=== PATIENT | female | born 1950 | race Caucasian/White ===

== ENCOUNTER → 2017-01-04 | Outpatient (REF) | payer MEDICARE ==
[~2017-01-04] MED LIST: ADV100INH INH; ASPI1TAB PO; ATOR40TA PO; BACL10TA2 PO; CALC600T57 PO; DRIS50002 PO; EPIP0.3I2 IM; PROA1AER INH; SPIR1CAP INH; TYLE167L PO; VITA100072 PO; VITA30004 PO
== END ==
LOC: M LAB REF 16:35
PROVIDERS: ATTEND Nurse Practitioner Adult Health
DX: R35.1 Nocturia (principal)

== ENCOUNTER → 2017-03-23 | Outpatient (CLI) | payer MEDICARE ==
[2017-03-23 14:48] LABS: CREATININE FOR GFR 1.03 MG/DL (0.55-1.02); GLOMERULAR FILTRATION RATE 56.7 (>45); POTASSIUM SERUM 4.6 MEQ/L (3.5-5.1)
[2017-03-23 22:25] LABS: MICROSCOPIC INDICATED? MAN NO (NO)
== END ==
LOC: M WUC 12:04
PROVIDERS: ATTEND Physician Assistant
DX: M54.5 Low back pain (principal); R35.0 Frequency of micturition

== ENCOUNTER → 2017-03-23 | Outpatient (CLI) | payer MEDICARE ==
--- NOTE | 2017-03-23 14:44 | REP ---
CT ABDOMEN/PELVIS WITHOUT CONTRAST: CT abdomen/pelvis performed without IV contrast, with sagittal and coronal reconstruction images performed. Comparison made with prior studies, most recent CT abdomen and pelvis, 03/27/2013. Visualized lung bases demonstrate interstitial fibrotic change. Liver demonstrates scattered small cysts similar to prior exams. Spleen, adrenals, and pancreas appear unremarkable. There are vascular calcifications in both renal marichuy. Possible 3 cm mass is seen in the mid left kidney laterally. Recommend renal ultrasound to further evaluate. There is no hydroureteronephrosis. Atherosclerotic calcifications are seen of the abdominal aorta without aneurysm. There is no adenopathy. There is no free air or free fluid. There is no bowel wall thickening. There is sigmoid diverticulosis without acute diverticulitis. No pelvic mass is seen. There are degenerative changes of the spine. IMPRESSION: No renal stones and no hydroureteronephrosis. Possible left renal mass 3 cm in diameter. Recommend renal ultrasound to further evaluate. Sigmoid diverticulosis without evidence of acute diverticulitis. No free air or free fluid. Signed by López Hunt MD 03/23/2017 04:23 P
== END ==
LOC: M RAD 12:52
PROVIDERS: ATTEND Physician Assistant
DX: M54.5 Low back pain (principal); R35.0 Frequency of micturition; K57.30 Diverticulosis of large intestine without perforation or abscess without bleeding

== ENCOUNTER → 2017-03-28 | Outpatient (CLI) | payer MEDICARE ==
--- NOTE | 2017-03-28 12:46 | REP ---
URINARY TRACT SONOGRAPHY: HISTORY: CT found 3 cm mass left kidney. Comparison CT study March 23, 2017. There is also a comparison CT study from March 27, 2013. Comparison sonography is from January 06, 2011. FINDINGS: Scanning at the level of the urinary bladder demonstrate that it is only partially distended but otherwise unremarkable. Renal cortical echogenicity pattern is normal bilaterally. No hydronephrosis is seen on either side. The right kidney measures 12.0 x 4.7 x 4.8 cm. No right renal mass or cyst is seen. Left renal dimensions are 12.4 x 4.4 x 4.4 cm. In the upper pole left kidney there is a complex predominantly cystic lesion measuring 3.5 x 2.3 x 3.2 cm. The lesion appears to be septated. There is the appearance of a solid component along one of its will. There is enhanced through transmission. No other mass lesion is seen. IMPRESSION: 3.5 cm complex lesion confirmed in the upper pole of the left kidney. Predominately cystic. Further evaluation is recommended with MRI scanning without and with IV gadolinium. Signed by Tristan Beltran MD 03/28/2017 01:11 P
== END ==
LOC: M RAD 11:35
PROVIDERS: ATTEND Physician Assistant
DX: M54.5 Low back pain (principal); R35.0 Frequency of micturition; N28.9 Disorder of kidney and ureter, unspecified

== ENCOUNTER → 2017-08-02 | Outpatient (CLI) | payer MEDICARE ==
[~2017-08-02] MED LIST changes: -ATOR40TA PO; +ATOR40TA75 PO; -PROA1AER INH; +PROAAER10 INH
--- NOTE | 2017-08-02 14:32 | REPMRS ---
Patient History The patient states she had a clinical breast exam in 07/2017. Patient is postmenopausal and had first child at age 30. Family history of colorectal cancer in paternal cousin and prostate cancer in brother. Benign FNA biopsy of the right breast, 1998. Digital Woman Screen Mammo: August 02, 2017 - Exam #: [id number] Bilateral CC and MLO view(s) were taken. Technologist: Louann Acosta, Technologist Prior study comparison: July 20, 2016, digital woman screen mammo performed at [facility]. June 26, 2015, digital woman screen mammo performed at [facility]. FINDINGS: There are scattered fibroglandular densities. There has been no change in the appearance of the mammogram from the prior studies. There is a mild amount of residual fibroglandular tissue which is fairly symmetric. There is no interval development of dominant mass, architectural distortion, or clustered microcalcification suggestive of malignancy. ASSESSMENT: BI-RADS/ACR category 1 mammogram. Negative. Recommendation Routine screening mammogram in 1 year (for women over age 40). This mammogram was interpreted with the aid of an FDA-approved computer-aided dectection system. Electronically Signed By: López Hunt MD 08/02/17 1813
--- NOTE | 2017-08-02 16:25 | REP ---
PELVIC ULTRASOUND: Real-time sonographic evaluation of the pelvis was performed utilizing transabdominal and endovaginal technique. The bladder measures 3.0 x 4.2 x 4.9 cm. The uterus measures 6.4 x 2.0 x 4.1 cm. Endometrial thickness is 3 mm. The ovaries could not be visualized. There is no definite adnexal mass or free fluid. There does appear to be a subcentimeter fibroid anteriorly. Two calcifications in the posterior myometrium probably represent small calcified fibroids. IMPRESSION: There appear to be small fibroids in the uterus. No evidence of mass or free fluid.
--- NOTE | 2017-08-11 09:20 | DEXA ---
AP SPINE L1 - L4 0.895 -2.4 -0.8 LT FEMUR TOTAL 0.828 -1.4 0.0 RT FEMUR TOTAL 0.860 -1.2 0.2 TOTAL BODY TOTAL OTHER DUAL FEMUR FRAX* ASSESSMENT Risk factors: Not performed. 10 year probability of fracture Major osteoporotic fracture % Hip fracture % COMMENTS: There is low bone density of the spine and hips. The decreased density of the spine does not represent a significant change. The decreased density of the left hip does not represent a significant change. The increased density of the right hip does represent a significant change. The density of the spine has increased 2.9% since the initial exam on 2001. The spine density has decreased 0.6% since the most recent exam on 06/26/2015. The density of the left hip has decreased 4.6% since the initial exam on 2001. The density of the left hip has decreased 0.1% since the most recent exam on . The density of the right hip has decreased 3.0% since the initial exam on 2001. The density of the right hip has increased 3.5% since the most recent exam on . FOLLOW-UP: Recommendation for the next bone density exam: 2 years. JOVAN
== END ==
LOC: M WHC 13:06
PROVIDERS: ATTEND Nurse Practitioner Women's Health
DX: Z01.419 Encounter for gynecological examination (general) (routine) without abnormal findings (principal); Z12.31 Encounter for screening mammogram for malignant neoplasm of breast; M81.0 Age-related osteoporosis without current pathological fracture; Z78.0 Asymptomatic menopausal state; D25.9 Leiomyoma of uterus, unspecified; Z12.12 Encounter for screening for malignant neoplasm of rectum; Z92.89 Personal history of other medical treatment
CPT/HCPCS: 76830; 76856; 77080; G0202

== ENCOUNTER → 2017-10-03 | Outpatient (REF) | payer MEDICARE ==
[2017-10-03 20:09] LABS: PERCENT SATURATION 21.9 % (13.2-45.0)
== END ==
LOC: M LAB REF 17:17
PROVIDERS: ATTEND Nurse Practitioner Adult Health
DX: D64.9 Anemia, unspecified (principal)

== ENCOUNTER → 2017-10-30 | Outpatient (CLI) | payer MEDICARE ==
--- NOTE | 2017-10-30 12:09 | REP ---
RIGHT LOWER LEG, TWO VIEWS: There is no evidence of an acute fracture, dislocation or intrinsic bone disease. IMPRESSION: No fracture or dislocation. Signed by López Hunt MD 10/30/2017 05:57 P
== END ==
LOC: M WUC 10:21
PROVIDERS: ATTEND Physician Assistant
DX: M79.661 Pain in right lower leg (principal)

== ENCOUNTER → 2018-03-28 | Outpatient (CLI) | payer MEDICARE ==
[2018-03-28 11:21] LABS: BASO % 0.7 % (0.0-1.0); EOS # 0.2 10^3/uL (0.0-0.50); EOS % 3.1 % (0.0-3.0); HEMATOCRIT 35.7 % (36.0-47.0); HEMOGLOBIN 11.4 g/dl (12.0-15.5); IMMATURE GRANULOCYTE % 1.1 % (0-3.0); LYMPH # 1.3 10^3/uL (1.5-4.5); LYMPH % 23.8 % (24.0-44.0); MEAN CORPUSCULAR HEMOGLOBIN 31.8 pg (27.0-33.0); MEAN CORPUSCULAR HGB CONC 31.9 g/dl (32.0-36.5); MEAN CORPUSCULAR VOLUME 99.7 fl (80.0-96.0); MONO # 0.5 10^3/uL (0.0-0.8); MONO % 9.8 % (0.0-5.0); NEUTROPHILS # 3.3 10^3/uL (1.8-7.7); NEUTROPHILS % 61.5 % (36.0-66.0); PLATELET COUNT, AUTOMATED 275 10^3/uL (150-450); RED BLOOD COUNT 3.58 10^6/uL (4.00-5.40); WHITE BLOOD COUNT 5.4 10^3/uL (4.0-10.0)
[2018-03-28 11:46] LABS: C REACTIVE PROTEIN QUANTITATIV 0.53 MG/DL (0.00-0.30)
[2018-03-28 11:54] LABS: ERYTHROCYTE SEDIMENTATION RATE 27 mm/hr (0-30)
== END ==
LOC: M LAB 10:58
DX: M77.8 Other enthesopathies, not elsewhere classified (principal); Z79.899 Other long term (current) drug therapy
CPT/HCPCS: 86140

== ENCOUNTER 2018-04-24 07:29 | Outpatient (RCR) | payer MEDICARE | END 2018-05-12 | LOC: M OT 07:29 | DX: Z51.89 Encounter for other specified aftercare (principal); M77.8 Other enthesopathies, not elsewhere classified; M79.644 Pain in right finger(s) | CPT/HCPCS: 97110 ==

== ENCOUNTER → 2018-07-06 | Outpatient (REF) | payer MEDICARE ==
[2018-07-06 18:06] LABS: APPEARANCE, URINE CLEAR (CLEAR); BACTERIA, URINE AUTO NEGATIVE (NEGATIVE); BILIRUBIN, URINE AUTO NEGATIVE (NEGATIVE); BLOOD, URINE BLOOD NEGATIVE (NEGATIVE); CALCIUM OXALATE CRYSTALS MODERATE; COLOR, URINE YELLOW (YELLOW); GLUCOSE, URINE (UA) AUTO NEGATIVE (NEGATIVE); KETONE, URINE AUTO NEGATIVE (NEGATIVE); LEUKOCYTE ESTERASE, URINE AUTO NEGATIVE (NEGATIVE); NITRITE, URINE AUTO NEGATIVE (NEGATIVE); PROTEIN, URINE AUTO NEGATIVE (NEGATIVE); RBC, URINE AUTO 1 /HPF (0-3); SPECIFIC GRAVITY URINE AUTO 1.019 (1.002-1.035); SQUAMOUS EPITHELIAL CELL UR AU 0 /HPF (0-6); UROBILINOGEN, URINE AUTO 0.2 mg/dL (0.0-2.0); WBC, URINE AUTO 1 /HPF (0-3)
== END ==
LOC: M SMT 16:40
DX: R35.0 Frequency of micturition (principal)
CPT/HCPCS: 81001

== ENCOUNTER → 2018-08-03 | Outpatient (CLI) | payer MEDICARE | LOC: M WHC 10:34 | DX: Z12.31 Encounter for screening mammogram for malignant neoplasm of breast (principal); Z78.0 Asymptomatic menopausal state; Z80.0 Family history of malignant neoplasm of digestive organs; Z98.890 Other specified postprocedural states | CPT/HCPCS: 77067 ==

== ENCOUNTER → 2018-11-29 | Outpatient (CLI) | payer MEDICARE ==
[~2018-11-29] MED LIST changes: -DRIS50002 PO; +DRIS50003 PO
--- NOTE | 2018-11-29 14:30 | REP ---
Chest two views HISTORY: Cough Comparison: 04/13/2012 Linear densities are present in the left lower lobe consistent with scar. The right lung is clear. The heart is upper limits of normal in size. The pulmonary vasculature is normal in appearance. The bony structure is intact. IMPRESSION: No acute disease. Electronically Signed by Alvaro Rangel MD 11/29/2018 02:23 P
== END ==
LOC: M WUC 14:12
PROVIDERS: ATTEND Nurse Practitioner Family
DX: R05 Cough (principal)

== ENCOUNTER → 2018-12-31 | Outpatient (CLI) | payer MEDICARE ==
--- NOTE | 2018-12-31 11:50 | REP ---
Renal ultrasound: Comparison is 03/28/2017. On the comparison study there was a complex renal cyst in the upper pole of the left kidney. Study today is for follow-up of this complex cyst. There is a complex lesion in the upper pole left kidney today measuring 1.8 x 1.5 x 1.5 cm. Previously this lesion measured 3.5 x 3.2 x 2.3 cm. This lesion today appears predominantly solid ultrasound. Previously it was combination of solid and cystic. The right kidney measures 920 x 4. By 4.7 cm. Left kidney measures 11.2 x 4.9 x 5.0 cm. Renal cortical echogenicity is normal bilaterally. There is no hydronephrosis on the right on the left. There are no renal calculi. There is no hydronephrosis. Bladder ultrasound: The with color Doppler assessment there are bilateral ureteral jets into the urinary bladder. The pre void bladder volume is 99.4 ml. The postvoid bladder volume. 0.6 ml per Impression: The patient's known left renal upper pole lesion has decreased in size but today has a predominantly solid appearance. Previously this was combination of solid and cystic. Consider follow-up MRI to compare with prior MRI studies in this lesion. Electronically Signed by López Hayes MD 12/31/2018 11:41 A
== END ==
LOC: M RAD 10:28
PROVIDERS: ATTEND Nurse Practitioner Family
DX: N28.1 Cyst of kidney, acquired (principal)

== ENCOUNTER → 2019-01-08 | Outpatient (CLI) | payer MEDICARE ==
[2019-01-08 17:14] LABS: CALCIUM LEVEL 9.4 MG/DL (8.8-10.2); CREATININE FOR GFR 1.07 MG/DL (0.55-1.30); POTASSIUM SERUM 4.7 MEQ/L (3.5-5.1)
== END ==
LOC: M WUC 12:29
PROVIDERS: ATTEND Nurse Practitioner Family
DX: N28.1 Cyst of kidney, acquired (principal)
CPT/HCPCS: 36415; 80048; G0463

== ENCOUNTER → 2019-03-27 | Outpatient (CLI) | payer MEDICARE ==
[~2019-03-27] MED LIST changes: -ASPI1TAB PO; +ASPI81TA26 PO; +VITA100018 PO; -VITA100072 PO
--- NOTE | 2019-03-27 13:21 | REP ---
Left ribs four views: Comparison is the PA and lateral chest dated 11/29/2018. There is slight deformity of the posterior arch of the left sixth rib. This could represent an age indeterminate fracture. No other left rib fractures are identified. PA chest: There is no pneumothorax, hemothorax or pulmonary contusion. Cardiac size is normal. The marichuy, mediastinum, skeletal structures are otherwise unremarkable. Electronically Signed by López Hayes MD 03/27/2019 01:13 P
== END ==
LOC: M WUC 12:07
PROVIDERS: ATTEND Physician Assistant
DX: S20.222A Contusion of left back wall of thorax, initial encounter (principal); X58.XXXA Exposure to other specified factors, initial encounter; Y92.89 Other specified places as the place of occurrence of the external cause

== ENCOUNTER → 2019-08-23 | Outpatient (CLI) | payer MEDICARE ==
--- NOTE | 2019-08-23 12:43 | REPMRS ---
Patient History The patient states she had a clinical breast exam in 08/2019. Family history of colorectal cancer in paternal cousin, prostate cancer at age 50 or over in brother, unknown cancer at age 50 or over in brother. Benign FNA biopsy of the right breast, 1998. Digital Woman Screen Mammo: August 23, 2019 - Exam #: [id number] Bilateral CC and MLO view(s) were taken. Technologist: Haley Cortés, Technologist Prior study comparison: August 03, 2018, bilateral digital woman screen mammo performed at [facility]. August 02, 2017, digital woman screen mammo performed at [facility]. July 20, 2016, digital woman screen mammo performed at [facility]. FINDINGS: There are scattered fibroglandular densities. There has been no change in the appearance of the mammogram from the prior studies. There is a mild amount of scattered fibroglandular density which is fairly symmetric. There is no interval development of dominant mass, architectural distortion, or grouped microcalcification suggestive of malignancy. 3-D tomosynthesis shows no additional findings. Assessment: BI-RADS/ACR category 1 mammogram. Negative Mammogram. Recommendation Routine screening mammogram of both breasts in 1 year (for women over age 40). This patient's Lifetime Breast Cancer Risk is estimated at 5.5 %. This mammogram was interpreted with the aid of an FDA-approved computer-aided dectection system. Electronically Signed By: Gokul Beltran MD 08/23/19 [id number]
--- NOTE | 2019-08-27 14:28 | DEXA ---
AP SPINE L1 - L4 0.927 -2.2 -0.5 LT FEMUR TOTAL 0.799 -1.7 -0.2 LT NECK 0.729 -2.2 -0.5 RT FEMUR TOTAL 0.827 -1.4 0.0 RT NECK 0.681 -2.6 -0.9 TOTAL BODY TOTAL OTHER COMMENTS: There is low bone density of the spine. There is low bone density of the left hip. There is osteoporosis of the right hip. The increased density of the spine does represent a significant change. The decreased density of the left hip does represent a significant change. The decreased density of the right hip does represent significant change. The density of the spine has increased 6.6% since the initial exam on 04/02/2002. The spine density has increased 3.6% since the most recent exam on 08/02/2017. The density of the left hip has decreased 7.9% since the initial exam on 04/02/2002. The density of the left hip has decreased 3.5% since most recent exam on 08/02/2017. The density of the right hip has decreased 7.0% since the initial exam on 04/02/2002. The density of the right hip has decreased 4.1% since the most recent exam on 08/02/2017. FOLLOW-UP: Recommendation for the next bone density exam: 2 years. JOVAN
== END ==
LOC: M WHC 10:38
PROVIDERS: ATTEND Nurse Practitioner Women's Health
DX: Z12.31 Encounter for screening mammogram for malignant neoplasm of breast (principal); M81.0 Age-related osteoporosis without current pathological fracture; Z80.42 Family history of malignant neoplasm of prostate; Z80.8 Family history of malignant neoplasm of other organs or systems; Z92.89 Personal history of other medical treatment

== ENCOUNTER → 2019-09-27 | Outpatient (REF) | payer MEDICARE ==
[2019-09-27 16:59] LABS: PTH INTACT 52.2 PG/ML (18.5-88.0)
== END ==
LOC: M LAB REF 16:28
PROVIDERS: ATTEND Nurse Practitioner Adult Health
DX: R20.3 Hyperesthesia (principal); N18.3 Chronic kidney disease, stage 3 (moderate)

== ENCOUNTER 2019-10-08 10:37 | Outpatient (RCR) | payer MEDICARE | END 2019-10-12 | LOC: M PT 10:37 | PROVIDERS: ATTEND Nurse Practitioner Adult Health | DX: M54.5 Low back pain (principal); M79.604 Pain in right leg ==

== ENCOUNTER → 2019-11-01 | Outpatient (CLI) | payer MEDICARE ==
--- NOTE | 2019-11-01 12:24 | REP ---
Four views right knee and three views right tibia / fibula: 11/01/2019. Indication: Pain following injury. Comparison: 10/30/2017. Findings: There is a minimally displaced, obliquely oriented fracture through the proximal portion of the right fibula. There is an effusion of the right knee particularly the infra and suprapatellar regions. No additional fractures are present. There is no evidence of subluxation/dislocation. Impression: Mildly displaced proximal right fibular fracture. Electronically Signed by Leif Whiteside DO 11/01/2019 12:16 P
== END ==
LOC: M WUC 10:25
PROVIDERS: ATTEND Physician Assistant
DX: S82.831A Other fracture of upper and lower end of right fibula, initial encounter for closed fracture (principal); M25.461 Effusion, right knee; X58.XXXA Exposure to other specified factors, initial encounter; Y92.9 Unspecified place or not applicable; Y93.9 Activity, unspecified; Y99.9 Unspecified external cause status; S80.01XA Contusion of right knee, initial encounter; S80.11XA Contusion of right lower leg, initial encounter

== ENCOUNTER → 2020-08-24 | Outpatient (CLI) | payer MEDICARE ==
--- NOTE | 2020-08-24 11:48 | REPMRS ---
Patient History The patient states she had a clinical breast exam in 08/2020. Family history of colorectal cancer in paternal cousin, prostate cancer at age 50 or over in brother, unknown cancer at age 50 or over in brother. Benign FNA biopsy of the right breast, 1998. Digital Woman Screen Mammo: August 24, 2020 - Exam #: [id number] Bilateral CC and MLO view(s) were taken. Technologist: Louann Acosta, Technologist Prior study comparison: August 23, 2019, bilateral digital woman screen mammo performed at [facility]. August 03, 2018, bilateral digital woman screen mammo performed at [facility]. August 02, 2017, digital woman screen mammo performed at [facility]. FINDINGS: There are scattered fibroglandular densities. The Volpara volumetric breast density category is:B. There has been no change in the appearance of the mammogram from the prior studies. There is a mild amount of scattered fibroglandular density which is fairly symmetric. There is no interval development of dominant mass, architectural distortion, or grouped microcalcification suggestive of malignancy. 3-D tomosynthesis shows no additional findings. Assessment: BI-RADS/ACR category 1 mammogram. Negative Mammogram. Recommendation Routine screening mammogram of both breasts in 1 year (for women over age 40). This patient's Lifetime Breast Cancer Risk is estimated at 5.2 %. This mammogram was interpreted with the aid of an FDA-approved computer-aided dectection system. Electronically Signed By: Gokul Beltran MD 08/24/20 0534
== END ==
LOC: M WHC 10:35
PROVIDERS: ATTEND Nurse Practitioner Women's Health
DX: Z12.31 Encounter for screening mammogram for malignant neoplasm of breast (principal); Z80.42 Family history of malignant neoplasm of prostate; Z86.018 Personal history of other benign neoplasm

== ENCOUNTER → 2021-08-09 | Outpatient (CLI) | payer MEDICARE ==
--- NOTE | 2021-08-09 13:05 | REP ---
INDICATION: COMPLEX RENAL CYST. COMPARISON: 07/22/2020 FINDINGS: Multiple ultrasonographic images of the right kidney show the right kidney to measure 9.3 x 4.3 x 4.8 cm. The renal cortical echotexture is unchanged. There are no masses. There is good corticomedullary differentiation. There is no hydronephrosis. There are no perinephric fluid collections. Multiple ultrasonographic images of the left kidney show the left kidney to measure 11.6 x 3.8 x 4.4 cm. The renal cortical echotexture is unchanged. There is a 3.1 x 2.1 x 2.2 cm sized hypoechoic nodule which has increased in size from the prior exam.. There is good corticomedullary differentiation. There is no hydronephrosis. There are no perinephric fluid collections. IMPRESSION: Hypoechoic region in the left kidney as described above possibly reflecting an enlarging hyperdense cyst, however, solid mass cannot be ruled out. Pre and postcontrast enhanced renal CT is recommended <Electronically signed by Ruy Bianchi > 08/09/21 [id number]
== END ==
LOC: M RAD 12:10
PROVIDERS: ATTEND Nurse Practitioner Family
DX: N28.1 Cyst of kidney, acquired (principal); N28.89 Other specified disorders of kidney and ureter

== ENCOUNTER → 2021-09-13 | Outpatient (CLI) | payer MEDICARE ==
--- NOTE | 2021-09-13 12:53 | REPMRS ---
Patient History The patient states she had a clinical breast exam 08/05/21. Family history of colorectal cancer in paternal cousin, prostate cancer at age 50 or over in brother, unknown cancer at age 50 or over in brother. Benign FNA biopsy of the right breast, 1998. Digital Woman Screen Mammo: September 13, 2021 - Exam #: [id number] Bilateral CC and MLO view(s) were taken. Technologist: Gisel Washington, [employer] Prior study comparison: August 24, 2020, bilateral digital woman screen mammo performed at [facility]. August 23, 2019, bilateral digital woman screen mammo performed at [facility]. FINDINGS: There are scattered fibroglandular densities. Screening. Digital screening (2D) mammography was performed bilaterally in the CC and MLO projections. Additionally, breast tomosynthesis (3D mammography) was performed bilaterally in the CC and MLO projections. Todays exam was compared to the prior exam/exams. By history, the patient has no complaints of a palpable breast abnormality or other significant breast complaints. The breasts are unchanged in size and shape. There are no zuleika-soft tissue densities or spiculated masses. There is no internal architectural distortion. Once again, stable benign appearing calcifications are seen.There are no suspicious zuleika-calcific clusters. Skin thickening or nipple retraction is not present. IMPRESSION: BI-RADS Category 2- Benign Findings. There is no evidence of malignant alteration of the breasts. Followup examination recommended in one year. The Volpara volumetric breast density category is B, there are scattered areas of fibroglandular densities. This mammogram was read with the assistance of [facility] [employer],an FDA approved computer aided detection system for mammography. The lifetime Tyrer-Cuzick score is 4.8 % Negative x-ray reports should not delay surgical consultation if a dominant or clinically suspicious mass is present. Not all breast cancers can be identified by mammography. Therefore, we recommend that you continue to perform regular breast self-examination and physical examination and then promptly contact your physician of any concerns or changes. Adenosis and dense breasts may obscure an underlying neoplasm. Assessment: BI-RADS/ACR category 2 mammogram. Benign Findings. Recommendation Routine screening mammogram of both breasts in 1 year. Electronically Signed By: Ruy Bianchi DO 09/13/21 125
== END ==
LOC: M WHC 12:09
PROVIDERS: ATTEND Nurse Practitioner Adult Health
DX: Z12.31 Encounter for screening mammogram for malignant neoplasm of breast (principal); Z80.0 Family history of malignant neoplasm of digestive organs; Z80.42 Family history of malignant neoplasm of prostate; R92.1 Mammographic calcification found on diagnostic imaging of breast

== ENCOUNTER → 2021-09-29 | Outpatient (CLI) | payer MEDICARE ==
--- NOTE | 2021-10-10 22:01 | DEXAMM ---
INDICATION: BONE DENSITY. COMPARISON: 08/23/2019, 04/02/2002 TECHNIQUE: Bone density was measured using dual-energy x-ray absorptionmetry (DEXA). FINDINGS: AP SPINE L1-L4 BMD 0.96 g/cm2 Young Adult T-Score -1 point Age Matched Z-Score -0.2. LT FEMUR, TOTAL BMD 0.76 g/cm2 Young Adult T-Score X -2.0 Age Matched Z-Score -0.3. LT NECK BMD 0.68 g/cm2 Young Adult T-Score -2.6 Age Matched Z-Score X -0.8. RT FEMUR, TOTAL BMD 0.76 g/cm2 Young Adult T-Score -2.0 Age Matched Z-Score -0.4. RT NECK BMD 0.69 g/cm2 Young Adult T-Score -2.5 Age Matched Z-Score -0.7. IMPRESSION: There is low bone density of the spine. There is low bone density of the left hip. There is low bone density of the right hip. The density of the spine has increased 10% since the initial exam on 04/02/2002. The density of the spine increased 4% since most recent exam on 08/23/2019. The density of the left hip has decreased 12% since initial exam on 04/02/2002. The density of the left hip has decreased 5% since most recent exam on 08/23/2019. The density of the right hip has decreased 14% since the initial exam on 04/02/2002. The density of the right hip has decreased 8% since the most recent exam on 08/23/2019. FOLLOW-UP: Recommendation for the next bone density exam: 1 year. <Electronically signed by Mushtaq Ann > 10/10/21 0603
== END ==
LOC: M WHC 09:38
PROVIDERS: ATTEND Nurse Practitioner Adult Health
DX: M81.0 Age-related osteoporosis without current pathological fracture (principal); M85.89 Other specified disorders of bone density and structure, multiple sites

== ENCOUNTER → 2021-10-15 | Outpatient (CLI) | payer MEDICARE ==
[~2021-10-15] MED LIST changes: +PROHANCE 279.3MG/ML 15ML VIAL ONE; +PROHANCE 279.3MG/ML 5ML VIAL ONE
--- NOTE | 2021-10-15 14:34 | REP ---
INDICATION: COMPLEX RENAL CYST. COMPARISON: Multiple the latest 01/21/2019 TECHNIQUE: Pre and post contrast 3T MRI of the kidneys was performed utilizing various sequences. Gadolinium utilized: 17 cc ProHance FINDINGS: Note is again made of a complex cystic enhancing left renal lesion which today measures 1.7 x 1.6 by 1.4 cm previously 2.3 x 1.7 x 1.9 cm. No new abnormal renal enhancing lesions have developed. There is no abnormal Natalya renal fluid. The abdominal aorta and para-aortic regions are unchanged. No adenopathy has developed. The imaged portion of the liver is unchanged. The gallbladder, pancreas, and adrenal glands are unchanged. There is no evidence of a splenic abnormality. IMPRESSION: 1. The enhancing cystic left renal mass has again gotten smaller as described above. There are no new renal lesions. 2. Otherwise no significant change. There is cholelithiasis status quo. There are multiple tiny hepatic cysts status quo. No new abnormalities are identified. <Electronically signed by Ruy Bianchi > 10/15/21 [id number]
== END ==
LOC: M PLAIMG 10:11
PROVIDERS: ATTEND Nurse Practitioner Women's Health
DX: N28.1 Cyst of kidney, acquired (principal); N28.89 Other specified disorders of kidney and ureter; K80.20 Calculus of gallbladder without cholecystitis without obstruction; K76.89 Other specified diseases of liver
CPT/HCPCS: 74183; A9576

== ENCOUNTER 2022-04-07 18:24 | Emergency (ER) | payer MEDICARE ==
[~2022-04-07] VITALS: Ht 167.6 cm; Wt 180.0 kg
[2022-04-07 18:24] VITALS: BP 126/57
[~2022-04-07 18:24] MED LIST changes: -PROHANCE 279.3MG/ML 15ML VIAL ONE; -PROHANCE 279.3MG/ML 5ML VIAL ONE
[2022-04-07] MEDS ORDERED: ONDANSETRON 4MG ORAL DISINTEGRATING TAB PO ONE (20:55)
[2022-04-07] MEDS ORDERED: ONDA4TAB6 PO (21:07)
== END 2022-04-07 21:32 | disposition home or self-care (01) ==
LOC: M ED 18:24
DX: R11.0 Nausea (principal); Z86.16 Personal history of COVID-19; I10 Essential (primary) hypertension; K21.9 Gastro-esophageal reflux disease without esophagitis; F17.200 Nicotine dependence, unspecified, uncomplicated; Z79.82 Long term (current) use of aspirin; Z79.899 Other long term (current) drug therapy; Z91.030 Bee allergy status; Z91.89 Other specified personal risk factors, not elsewhere classified

== ENCOUNTER → 2022-06-08 | Outpatient (REF) | payer MEDICARE ==
[~2022-06-08] MED LIST changes: +ONDA4TAB6 PO
== END ==
LOC: M LAB REF 16:16
PROVIDERS: ATTEND Nurse Practitioner Adult Health
DX: Z51.81 Encounter for therapeutic drug level monitoring (principal); Z79.899 Other long term (current) drug therapy

== ENCOUNTER → 2022-09-16 | Outpatient (CLI) | payer MEDICARE | LOC: M WHC 13:38 | PROVIDERS: ATTEND Nurse Practitioner Adult Health | DX: Z12.31 Encounter for screening mammogram for malignant neoplasm of breast (principal) ==

== ENCOUNTER → 2023-01-20 | Outpatient (REF) | payer MEDICARE | LOC: M LAB REF 16:24 | PROVIDERS: ATTEND Nurse Practitioner Adult Health | DX: Z51.81 Encounter for therapeutic drug level monitoring (principal) ==

== ENCOUNTER 2024-10-18 11:44 | Emergency (ER) | payer MEDICARE ==
[~2024-10-18] VITALS: Ht 167.6 cm; Wt 66.4 kg
[~2024-10-18 11:44] MED LIST changes: -ADV100INH INH; +ADVA1AER8 INH; +ONDA-282 PO; -ONDA4TAB6 PO
[2024-10-18 11:55] VITALS: TEMP 96.8
[2024-10-18] MEDS: ACETAMINOPHEN 325 MG TAB PO ONE (13:15)
[2024-10-18] MEDS ORDERED: ROLLMIS8 XX (14:06)
[2024-10-18 15:03] VITALS: BP 120/58; O2SAT 98
== END 2024-10-18 15:06 | disposition home or self-care (01) ==
LOC: M ED 11:44
DX: S40.022A Contusion of left upper arm, initial encounter (principal); R26.9 Unspecified abnormalities of gait and mobility; W19.XXXA Unspecified fall, initial encounter; Y92.9 Unspecified place or not applicable; Y93.9 Activity, unspecified; Y99.9 Unspecified external cause status; M54.50 Low back pain, unspecified; K21.9 Gastro-esophageal reflux disease without esophagitis; F03.90 Unspecified dementia, unspecified severity, without behavioral disturbance, psychotic disturbance, mood disturbance, and anxiety; Z79.82 Long term (current) use of aspirin; Z79.899 Other long term (current) drug therapy; Z88.3 Allergy status to other anti-infective agents; Z91.030 Bee allergy status

== ENCOUNTER 2024-10-23 10:32 | Observation (INO) | payer MEDICARE ==
[~2024-10-23] VITALS: Ht 165.1 cm; Wt 68.8 kg
[~2024-10-23 10:32] MED LIST changes: +ROLLMIS8 XX
[2024-10-23 13:42] LABS: KETONE, URINE AUTO RFX NEGATIVE (NEGATIVE); NITRITE, URINE AUTO RFX NEGATIVE (NEGATIVE); RBC, URINE AUTO RFX 1 /HPF (0-3); SQUAM EPITHELIAL CELL UR AURFX 1 /HPF (0-6); TRANSITIONAL EPITHELIAL AU RFX 2 /HPF
[2024-10-23 13:43] LABS: LEUKOCYTE ESTERASE UR AUTO RFX 3+ (NEGATIVE); WBC, URINE AUTO RFX 24 /HPF (0-3)
[2024-10-23 14:10] LABS: BASO % 0.4 % (0.0-1.0); EOS # 0.2 10^3/uL (0.0-0.5); EOS % 2.1 % (0.0-3.0); HEMATOCRIT 31.1 % (36.0-47.0); HEMOGLOBIN 10.6 g/dl (12.0-15.5); LYMPH # 1.1 10^3/uL (1.5-5.0); LYMPH % 14.7 % (24.0-44.0); MEAN CORPUSCULAR HEMOGLOBIN 33.5 pg (27.0-33.0); MEAN CORPUSCULAR HGB CONC 34.1 g/dl (32.0-36.5); MEAN CORPUSCULAR VOLUME 98.4 fl (80.0-96.0); MONO # 0.7 10^3/uL (0.0-0.8); MONO % 9.1 % (2.0-8.0); NEUTROPHILS # 5.7 10^3/uL (1.5-8.5); NEUTROPHILS % 73.4 % (36.0-66.0); PLATELET COUNT, AUTOMATED 278 10^3/uL (150-450); RED BLOOD COUNT 3.16 10^6/uL (4.00-5.40); WHITE BLOOD COUNT 7.7 10^3/uL (4.0-10.0)
[2024-10-23] MEDS: cefTRIAXone SOD 1 GM in DEXTROSE 5% (D5W) ADV/MINI-BAG 50 ML IV ONE (14:15)
[2024-10-23 14:30] LABS: ALBUMIN 3.3 G/DL (3.2-5.2); BILIRUBIN,DIRECT 0.2 MG/DL (<0.4); BILIRUBIN,TOTAL 0.7 MG/DL (0.3-1.2); TOTAL PROTEIN 6.4 G/DL (5.7-8.2)
[2024-10-23 14:32] LABS: BLOOD UREA NITROGEN 35 MG/DL (9-23); CALCIUM LEVEL 10.9 MG/DL (8.3-10.6); CARBON DIOXIDE LEVEL 27 MMOL/L (20-31); CHLORIDE LEVEL 105 MMOL/L (98-107); CREATININE FOR GFR 0.83 MG/DL (0.55-1.30); GLOMERULAR FILTRATION RATE > 60.0 (>39); GLUCOSE, FASTING 93 MG/DL (74-106); POTASSIUM SERUM 4.3 MMOL/L (3.5-5.1); SODIUM LEVEL 141 MMOL/L (136-145)
[2024-10-23] MEDS ORDERED: LISI5TAB11 PO (16:37)
[2024-10-23] MEDS ORDERED: CHOL25TA9 PO (16:37)
[2024-10-23] MEDS ORDERED: OMEGCAP4 PO (16:37)
[2024-10-23] MEDS ORDERED: VITA500C3 PO (16:37)
[2024-10-23] MEDS ORDERED: OXYB5TAB14 PO (16:37)
[2024-10-23] MEDS ORDERED: HOME MED LIST COMPLETE! XX SCH (16:40)
[2024-10-23] MEDS: NS (Normal Saline) 0.9% 1,000 ML IV ONE ×2 (16:46→18:11)
[2024-10-23 20:41] LABS: MAGNESIUM LEVEL 1.9 MG/DL (1.8-2.4)
[2024-10-23] MEDS: OMEGA-3 1000MG CAPSULE PO SCH (21:00)
[2024-10-23] MEDS: oxyBUTYnin 5 MG TAB PO SCH (21:09)
[2024-10-23] MEDS: ATORVASTATIN 20 MG TAB PO SCH (21:11)
[2024-10-23] MEDS: CYANOCOBALAMIN 500 MCG TAB PO SCH (21:13)
[2024-10-24 06:42] LABS: BASO % 0.4 % (0.0-1.0); EOS # 0.1 10^3/uL (0.0-0.5); EOS % 1.6 % (0.0-3.0); HEMATOCRIT 31.5 % (36.0-47.0); HEMOGLOBIN 10.5 g/dl (12.0-15.5); LYMPH # 0.8 10^3/uL (1.5-5.0); LYMPH % 11.9 % (24.0-44.0); MEAN CORPUSCULAR HEMOGLOBIN 32.9 pg (27.0-33.0); MEAN CORPUSCULAR HGB CONC 33.3 g/dl (32.0-36.5); MEAN CORPUSCULAR VOLUME 98.7 fl (80.0-96.0); MONO # 0.6 10^3/uL (0.0-0.8); MONO % 8.4 % (2.0-8.0); NEUTROPHILS # 5.3 10^3/uL (1.5-8.5); NEUTROPHILS % 77.1 % (36.0-66.0); PLATELET COUNT, AUTOMATED 276 10^3/uL (150-450); RED BLOOD COUNT 3.19 10^6/uL (4.00-5.40); WHITE BLOOD COUNT 6.9 10^3/uL (4.0-10.0)
[2024-10-24 07:15] LABS: ALKALINE PHOSPHATASE 60 U/L (35-104); ALT/SGPT 25 U/L (7.0-40); AST/SGOT 22 U/L (<34); BILIRUBIN,TOTAL 0.7 MG/DL (0.3-1.2); BLOOD UREA NITROGEN 23 MG/DL (9-23); CALCIUM LEVEL 10.1 MG/DL (8.3-10.6); CARBON DIOXIDE LEVEL 24 MMOL/L (20-31); CHLORIDE LEVEL 111 MMOL/L (98-107); CREATININE FOR GFR 0.82 MG/DL (0.55-1.30); FOLATE 7.12 NG/ML (>5.4); FREE THYROXINE INDEX 4.3 % (1.3-4.8); GLOMERULAR FILTRATION RATE > 60.0 (>39); GLUCOSE, FASTING 108 MG/DL (74-106); MAGNESIUM LEVEL 1.8 MG/DL (1.8-2.4); PHOSPHORUS LEVEL 3.8 MG/DL (2.4-5.1); POTASSIUM SERUM 4.3 MMOL/L (3.5-5.1); SODIUM LEVEL 143 MMOL/L (136-145); T UPTAKE 47.5 % (22.5-37.0); THYROID STIMULATING HORMONE 0.872 uIU/ML (0.55-4.78); THYROXINE (T4) 9.1 UG/DL (4.5-10.9); TOTAL 25(OH) VITAMIN D 40.4 NG/ML (20.0-100.0); TOTAL PROTEIN 5.8 G/DL (5.7-8.2); VITAMIN B12 LEVEL 493 PG/ML (211-911)
[2024-10-24] MEDS: CALCIUM/VITAMIN D 500 MG TAB PO SCH (10:05)
[2024-10-24] MEDS ORDERED: OXYB5TAB14 PO (11:40)
[2024-10-24] MEDS: FOSFOMYCIN TROMETHAMINE 3 GM POWDER PACKET (MONUROL) PO ONE (16:08)
[2024-10-24 21:23] VITALS: BP 138/64; TEMP 97.3; O2SAT 98
[2024-10-24] MEDS: ACETAMINOPHEN 325 MG TAB PO PRN (21:53)
[2024-10-25 04:00] VITALS: BP 127/52; TEMP 97.5; O2SAT 98
[2024-10-25 04:56] LABS: BASO % 0.5 % (0.0-1.0); EOS # 0.2 10^3/uL (0.0-0.5); EOS % 2.9 % (0.0-3.0); HEMATOCRIT 30.3 % (36.0-47.0); HEMOGLOBIN 9.7 g/dl (12.0-15.5); LYMPH # 1.2 10^3/uL (1.5-5.0); MEAN CORPUSCULAR HEMOGLOBIN 32.4 pg (27.0-33.0); MEAN CORPUSCULAR VOLUME 101.3 fl (80.0-96.0); MONO # 0.6 10^3/uL (0.0-0.8); MONO % 9.7 % (2.0-8.0); NEUTROPHILS # 4.5 10^3/uL (1.5-8.5); NEUTROPHILS % 68.3 % (36.0-66.0); PLATELET COUNT, AUTOMATED 240 10^3/uL (150-450); RED BLOOD COUNT 2.99 10^6/uL (4.00-5.40); WHITE BLOOD COUNT 6.6 10^3/uL (4.0-10.0)
[2024-10-26 04:00] VITALS: BP 124/52; TEMP 97.5; O2SAT 97
[2024-10-26 06:21] LABS: BASO # 0.1 10^3/uL (0.0-0.2); BASO % 0.6 % (0.0-1.0); EOS # 0.2 10^3/uL (0.0-0.5); EOS % 2.5 % (0.0-3.0); HEMATOCRIT 29.3 % (36.0-47.0); HEMOGLOBIN 9.7 g/dl (12.0-15.5); LYMPH # 1.5 10^3/uL (1.5-5.0); LYMPH % 18.4 % (24.0-44.0); MEAN CORPUSCULAR HEMOGLOBIN 33.7 pg (27.0-33.0); MEAN CORPUSCULAR HGB CONC 33.1 g/dl (32.0-36.5); MEAN CORPUSCULAR VOLUME 101.7 fl (80.0-96.0); MONO # 0.6 10^3/uL (0.0-0.8); MONO % 7.6 % (2.0-8.0); NEUTROPHILS # 5.6 10^3/uL (1.5-8.5); NEUTROPHILS % 70.3 % (36.0-66.0); PLATELET COUNT, AUTOMATED 245 10^3/uL (150-450); RED BLOOD COUNT 2.88 10^6/uL (4.00-5.40); WHITE BLOOD COUNT 7.9 10^3/uL (4.0-10.0)
[2024-10-27 03:54] VITALS: BP 116/49; TEMP 97.3; O2SAT 98
[2024-10-27 06:49] LABS: BASO % 0.5 % (0.0-1.0); EOS # 0.2 10^3/uL (0.0-0.5); EOS % 2.7 % (0.0-3.0); HEMATOCRIT 31.9 % (36.0-47.0); HEMOGLOBIN 10.2 g/dl (12.0-15.5); LYMPH # 1.3 10^3/uL (1.5-5.0); LYMPH % 17.4 % (24.0-44.0); MEAN CORPUSCULAR HEMOGLOBIN 32.8 pg (27.0-33.0); MEAN CORPUSCULAR VOLUME 102.6 fl (80.0-96.0); MONO # 0.5 10^3/uL (0.0-0.8); MONO % 6.8 % (2.0-8.0); NEUTROPHILS # 5.3 10^3/uL (1.5-8.5); NEUTROPHILS % 71.9 % (36.0-66.0); PLATELET COUNT, AUTOMATED 266 10^3/uL (150-450); RED BLOOD COUNT 3.11 10^6/uL (4.00-5.40); WHITE BLOOD COUNT 7.4 10^3/uL (4.0-10.0)
[2024-10-28 05:13] LABS: BASO % 0.5 % (0.0-1.0); EOS # 0.2 10^3/uL (0.0-0.5); EOS % 2.3 % (0.0-3.0); HEMOGLOBIN 9.9 g/dl (12.0-15.5); LYMPH # 1.5 10^3/uL (1.5-5.0); LYMPH % 16.5 % (24.0-44.0); MEAN CORPUSCULAR HEMOGLOBIN 32.7 pg (27.0-33.0); MEAN CORPUSCULAR HGB CONC 31.9 g/dl (32.0-36.5); MEAN CORPUSCULAR VOLUME 102.3 fl (80.0-96.0); MONO # 0.5 10^3/uL (0.0-0.8); MONO % 6.1 % (2.0-8.0); NEUTROPHILS # 6.5 10^3/uL (1.5-8.5); NEUTROPHILS % 74.1 % (36.0-66.0); PLATELET COUNT, AUTOMATED 271 10^3/uL (150-450); RED BLOOD COUNT 3.03 10^6/uL (4.00-5.40); WHITE BLOOD COUNT 8.8 10^3/uL (4.0-10.0)
[2024-10-28 05:26] VITALS: BP 136/54; TEMP 97.3; O2SAT 96
[2024-10-29 02:41] VITALS: BP 105/55; TEMP 97.9; O2SAT 97
[2024-10-29 04:02] VITALS: BP 117/60; TEMP 97.7; O2SAT 98
[2024-10-29 05:14] LABS: BASO # 0.1 10^3/uL (0.0-0.2); BASO % 0.6 % (0.0-1.0); EOS # 0.2 10^3/uL (0.0-0.5); EOS % 2.7 % (0.0-3.0); HEMATOCRIT 29.3 % (36.0-47.0); HEMOGLOBIN 9.7 g/dl (12.0-15.5); LYMPH # 1.4 10^3/uL (1.5-5.0); LYMPH % 17.7 % (24.0-44.0); MEAN CORPUSCULAR HEMOGLOBIN 33.1 pg (27.0-33.0); MEAN CORPUSCULAR HGB CONC 33.1 g/dl (32.0-36.5); MONO # 0.6 10^3/uL (0.0-0.8); MONO % 7.9 % (2.0-8.0); NEUTROPHILS # 5.4 10^3/uL (1.5-8.5); NEUTROPHILS % 70.2 % (36.0-66.0); PLATELET COUNT, AUTOMATED 274 10^3/uL (150-450); RED BLOOD COUNT 2.93 10^6/uL (4.00-5.40); WHITE BLOOD COUNT 7.7 10^3/uL (4.0-10.0)
[2024-10-30 04:00] VITALS: BP 121/61; TEMP 97.5; O2SAT 95
[2024-10-30 07:55] LABS: BASO % 0.6 % (0.0-1.0); EOS # 0.2 10^3/uL (0.0-0.5); EOS % 2.8 % (0.0-3.0); HEMATOCRIT 30.6 % (36.0-47.0); LYMPH # 1.2 10^3/uL (1.5-5.0); MEAN CORPUSCULAR HEMOGLOBIN 33.2 pg (27.0-33.0); MEAN CORPUSCULAR HGB CONC 32.7 g/dl (32.0-36.5); MEAN CORPUSCULAR VOLUME 101.7 fl (80.0-96.0); MONO # 0.6 10^3/uL (0.0-0.8); MONO % 8.4 % (2.0-8.0); NEUTROPHILS # 4.5 10^3/uL (1.5-8.5); NEUTROPHILS % 68.7 % (36.0-66.0); PLATELET COUNT, AUTOMATED 303 10^3/uL (150-450); RED BLOOD COUNT 3.01 10^6/uL (4.00-5.40); WHITE BLOOD COUNT 6.5 10^3/uL (4.0-10.0)
[2024-10-31 03:30] VITALS: BP 103/50; TEMP 97.5; O2SAT 98
[2024-10-31] MEDS: RAMELTEON 8 MG TAB (ROZEREM) PO PRN (20:59)
[2024-11-01 04:20] VITALS: BP 130/48; TEMP 97.5; O2SAT 97
[2024-11-01] MEDS: traMADol 50 MG TAB PO PRN (11:57)
[2024-11-01] MEDS: ACETAMINOPHEN 500 MG TAB PO SCH (16:06)
[2024-11-02 04:00] VITALS: BP 132/52; TEMP 97.2; O2SAT 95
[2024-11-02] MEDS: ENOXAPARIN 40MG/0.4ML SYRINGE (J1650 PER 10MG) SC SCH (09:46)
[2024-11-03 04:02] VITALS: BP 132/52; TEMP 97; O2SAT 96
[2024-11-03 12:55] LABS: KETONE, URINE AUTO RFX NEGATIVE (NEGATIVE); MUCUS, URINE RFX SMALL (NEGATIVE); NITRITE, URINE AUTO RFX NEGATIVE (NEGATIVE); RBC, URINE AUTO RFX 20 /HPF (0-3); SQUAM EPITHELIAL CELL UR AURFX 0 /HPF (0-6)
[2024-11-03 13:09] LABS: LEUKOCYTE ESTERASE UR AUTO RFX 3+ (NEGATIVE); WBC, URINE AUTO RFX 126 /HPF (0-3)
[2024-11-03] MEDS: CEFDINIR 300 MG CAP (OMNICEF) PO SCH (14:51)
[2024-11-04 04:19] VITALS: BP 114/51; TEMP 97.3; O2SAT 97
[2024-11-05 04:00] VITALS: BP 141/62; TEMP 97.5; O2SAT 95
[2024-11-06 03:40] VITALS: BP 122/49; TEMP 97.7; O2SAT 96
[2024-11-06 05:34] VITALS: O2SAT 96
[2024-11-07 04:20] VITALS: BP 131/47; TEMP 97.3; O2SAT 97
[2024-11-07] MEDS: ALPRAZolam 0.5 MG TAB PO ONE (18:27)
[2024-11-08 03:32] VITALS: BP 127/47; TEMP 97.2; O2SAT 96
[2024-11-08 20:48] VITALS: O2SAT 97
[2024-11-09 04:00] VITALS: BP 121/71; TEMP 97.5; O2SAT 96
[2024-11-09] MEDS: OLANZapine 5 MG TAB PO ONE (18:29)
[2024-11-09] MEDS: ACETAMINOPHEN 325 MG TAB PO PRN (20:48)
[2024-11-09] MEDS: OLANZapine 2.5MG TABLET PO PRN (20:48)
[2024-11-10 04:00] VITALS: BP 102/52; TEMP 96.8; O2SAT 96
[2024-11-11 04:03] VITALS: BP 137/49; TEMP 97.2; O2SAT 97
[2024-11-11] MEDS: SENOKOT S TAB PO PRN (08:08)
[2024-11-12 03:32] VITALS: BP 130/51; TEMP 97.2; O2SAT 96
[2024-11-13 03:50] VITALS: BP 105/41; TEMP 97.2; O2SAT 96
[2024-11-13 04:55] VITALS: BP 115/55
[2024-11-14 06:00] VITALS: BP 131/59; TEMP 97.7; O2SAT 96
[2024-11-15 04:03] VITALS: BP 122/44; TEMP 97.5; O2SAT 96
[2024-11-16 03:35] VITALS: BP 111/44; TEMP 97.7; O2SAT 98
[2024-11-17 04:00] VITALS: BP 105/55; TEMP 97.9; O2SAT 96
[2024-11-18 04:00] VITALS: BP 108/43; TEMP 97.3; O2SAT 97
[2024-11-19 04:00] VITALS: BP 102/37; TEMP 97.9; O2SAT 96
[2024-11-20 04:06] VITALS: BP 102/43; TEMP 97.9; O2SAT 96
[2024-11-20 08:45] VITALS: BP 100/40
[2024-11-21 04:06] VITALS: BP 98/40; TEMP 97.9; O2SAT 97
[2024-11-21 05:00] VITALS: BP 105/54
[2024-11-22 04:35] VITALS: BP 90/28; TEMP 97.9; O2SAT 96
[2024-11-22 04:49] VITALS: BP 92/38
[2024-11-22 05:19] VITALS: O2SAT 98
[2024-11-22 06:07] LABS: HEMATOCRIT 28.5 % (36.0-47.0); HEMOGLOBIN 9.1 g/dl (12.0-15.5); MEAN CORPUSCULAR HGB CONC 31.9 g/dl (32.0-36.5); MEAN CORPUSCULAR VOLUME 103.3 fl (80.0-96.0); PLATELET COUNT, AUTOMATED 213 10^3/uL (150-450); RED BLOOD COUNT 2.76 10^6/uL (4.00-5.40); WHITE BLOOD COUNT 5.4 10^3/uL (4.0-10.0)
[2024-11-22 06:22] LABS: BLOOD UREA NITROGEN 37 MG/DL (9-23); CALCIUM LEVEL 9.5 MG/DL (8.3-10.6); CARBON DIOXIDE LEVEL 27 MMOL/L (20-31); CHLORIDE LEVEL 105 MMOL/L (98-107); CREATININE FOR GFR 0.88 MG/DL (0.55-1.30); GLOMERULAR FILTRATION RATE > 60.0 (>39); GLUCOSE, FASTING 88 MG/DL (74-106); POTASSIUM SERUM 4.4 MMOL/L (3.5-5.1); SODIUM LEVEL 141 MMOL/L (136-145)
[2024-11-22 09:25] VITALS: BP 120/58
[2024-11-22 13:59] LABS: KETONE, URINE AUTO RFX NEGATIVE (NEGATIVE); LEUKOCYTE ESTERASE UR AUTO RFX 3+ (NEGATIVE); NITRITE, URINE AUTO RFX NEGATIVE (NEGATIVE); RBC, URINE AUTO RFX 3 /HPF (0-3); SQUAM EPITHELIAL CELL UR AURFX 0 /HPF (0-6); TRANSITIONAL EPITHELIAL AU RFX 2 /HPF; WBC, URINE AUTO RFX 36 /HPF (0-3)
[2024-11-22 20:30] VITALS: BP 112/42; TEMP 97.9; O2SAT 96
[2024-11-22] MEDS: CEFDINIR 300 MG CAP (OMNICEF) PO SCH (20:32)
[2024-11-23 04:27] VITALS: BP_SYST 100; BP_SYST 101; BP_DIAS 30; BP_DIAS 36; TEMP 97.2; O2SAT 96
[2024-11-23 04:42] VITALS: BP 100/42
[2024-11-23 06:25] LABS: HEMOGLOBIN 9.2 g/dl (12.0-15.5); MEAN CORPUSCULAR HEMOGLOBIN 33.7 pg (27.0-33.0); MEAN CORPUSCULAR HGB CONC 32.9 g/dl (32.0-36.5); MEAN CORPUSCULAR VOLUME 102.6 fl (80.0-96.0); PLATELET COUNT, AUTOMATED 216 10^3/uL (150-450); RED BLOOD COUNT 2.73 10^6/uL (4.00-5.40); WHITE BLOOD COUNT 4.7 10^3/uL (4.0-10.0)
[2024-11-23 06:55] LABS: BLOOD UREA NITROGEN 29 MG/DL (9-23); CALCIUM LEVEL 9.1 MG/DL (8.3-10.6); CARBON DIOXIDE LEVEL 29 MMOL/L (20-31); CHLORIDE LEVEL 108 MMOL/L (98-107); CREATININE FOR GFR 0.88 MG/DL (0.55-1.30); GLOMERULAR FILTRATION RATE > 60.0 (>39); GLUCOSE, FASTING 91 MG/DL (74-106); POTASSIUM SERUM 4.3 MMOL/L (3.5-5.1); SODIUM LEVEL 144 MMOL/L (136-145)
[2024-11-23] MEDS: PHENAZOPYRIDINE 100 MG TAB PO SCH (16:21)
[2024-11-23 21:10] VITALS: BP 91/38; TEMP 97.9; O2SAT 96
[2024-11-23 21:11] VITALS: BP 108/46
[2024-11-24 05:30] VITALS: BP 110/45; TEMP 97.9; O2SAT 95
[2024-11-25 03:58] VITALS: BP 111/44; TEMP 97.7; O2SAT 95
[2024-11-26 03:36] VITALS: BP 128/43; TEMP 97.7; O2SAT 96
[2024-11-26] MEDS: MOM 30ML SUSPENSION UDC PO PRN (10:51)
[2024-11-26] MEDS: SENOKOT S TAB PO SCH (20:10)
[2024-11-27 05:18] VITALS: BP 100/42; TEMP 97.7; O2SAT 95
[2024-11-28 04:30] VITALS: BP_SYST 100; BP_SYST 102; BP_DIAS 36; TEMP 97.7; O2SAT 96
[2024-11-29 04:51] VITALS: BP 109/60; TEMP 97.9; O2SAT 97
[2024-11-30 03:59] VITALS: BP 109/48; TEMP 97.9; O2SAT 95
[2024-12-01 04:43] VITALS: BP 104/48; TEMP 97.9; O2SAT 96
[2024-12-02 04:30] VITALS: BP 110/58; TEMP 97.5; O2SAT 95
[2024-12-03 04:30] VITALS: BP 110/46; TEMP 97.7; O2SAT 96
[2024-12-04 04:30] VITALS: BP 102/42; TEMP 97.9; O2SAT 93
[2024-12-04] MEDS ORDERED: ACET32TAB PO (11:03)
[2024-12-04] MEDS ORDERED: OLAN2.5T53 PO (11:03)
[2024-12-04] MEDS ORDERED: RAME8TAB2 PO (11:03)
[2024-12-04] MEDS ORDERED: SENN-52 PO (11:03)
== END 2024-12-04 11:45 ==
LOC: M ED 10:32 → M ED INP 10:33 → M MSPAV 10-24 21:20
PROVIDERS: ADMIT General Practice; ATTEND Internal Medicine
DX: G93.41 Metabolic encephalopathy (principal); F03.90 Unspecified dementia, unspecified severity, without behavioral disturbance, psychotic disturbance, mood disturbance, and anxiety; N39.0 Urinary tract infection, site not specified; B96.20 Unspecified Escherichia coli [E. coli] as the cause of diseases classified elsewhere; M81.0 Age-related osteoporosis without current pathological fracture; G25.1 Drug-induced tremor; E78.5 Hyperlipidemia, unspecified; I10 Essential (primary) hypertension; J44.9 Chronic obstructive pulmonary disease, unspecified; K58.8 Other irritable bowel syndrome; K21.9 Gastro-esophageal reflux disease without esophagitis; N28.1 Cyst of kidney, acquired; M40.00 Postural kyphosis, site unspecified; Z79.899 Other long term (current) drug therapy
CPT/HCPCS: 36415; 51701; 73564; 80048; 80053; 80076; 81001; 82140; 82306; 82607; 82746; 83605; 83690; 83735; 84100; 84436; 84443; 84479; 85025; 85027; 87086; 87088; 87186; 87426; 96365; 96372; 96375; 97116; 97161; 97165; 97530; 97535; 99285; G0378; J0696; J1650

== ENCOUNTER → 2024-12-06 | Outpatient (REF) ==
[~2024-12-06] MED LIST changes: +ACET32TAB PO; +CHOL25TA9 PO; +LISI5TAB11 PO; +OLAN2.5T53 PO; +OMEGCAP4 PO; +OXYB5TAB14 PO; +RAME8TAB2 PO; +SENN-52 PO; +VITA500C3 PO
[2024-12-06 07:33] LABS: HEMATOCRIT 32.6 % (36.0-47.0); HEMOGLOBIN 10.3 g/dl (12.0-15.5); MEAN CORPUSCULAR HGB CONC 31.6 g/dl (32.0-36.5); MEAN CORPUSCULAR VOLUME 104.5 fl (80.0-96.0); PLATELET COUNT, AUTOMATED 292 10^3/uL (150-450); RED BLOOD COUNT 3.12 10^6/uL (4.00-5.40); WHITE BLOOD COUNT 6.4 10^3/uL (4.0-10.0)
[2024-12-06 07:54] LABS: BLOOD UREA NITROGEN 31 MG/DL (9-23); CARBON DIOXIDE LEVEL 29 MMOL/L (20-31); CHLORIDE LEVEL 108 MMOL/L (98-107); CREATININE FOR GFR 0.93 MG/DL (0.55-1.30); GLOMERULAR FILTRATION RATE > 60.0 (>39); GLUCOSE, FASTING 103 MG/DL (74-106); POTASSIUM SERUM 4.8 MMOL/L (3.5-5.1); SODIUM LEVEL 143 MMOL/L (136-145)
[2024-12-06 07:56] LABS: VITAMIN B12 LEVEL 861 PG/ML (211-911)
== END ==
PROVIDERS: ATTEND Internal Medicine
DX: Z02.2 Encounter for examination for admission to residential institution (principal)

== ENCOUNTER → 2024-12-11 | Outpatient (REF) ==
[2024-12-11 09:17] LABS: CALCIUM LEVEL 9.7 MG/DL (8.3-10.6); CREATININE FOR GFR 0.99 MG/DL (0.55-1.30); GLOMERULAR FILTRATION RATE 58.1 (>39); POTASSIUM SERUM 4.4 MMOL/L (3.5-5.1)
[2024-12-11 09:26] LABS: HEMATOCRIT 33.6 % (36.0-47.0); HEMOGLOBIN 10.7 g/dl (12.0-15.5); MEAN CORPUSCULAR HEMOGLOBIN 33.3 pg (27.0-33.0); MEAN CORPUSCULAR HGB CONC 31.8 g/dl (32.0-36.5); MEAN CORPUSCULAR VOLUME 104.7 fl (80.0-96.0); PLATELET COUNT, AUTOMATED 251 10^3/uL (150-450); RED BLOOD COUNT 3.21 10^6/uL (4.00-5.40); WHITE BLOOD COUNT 3.3 10^3/uL (4.0-10.0)
== END ==
PROVIDERS: ATTEND Internal Medicine
DX: F03.90 Unspecified dementia, unspecified severity, without behavioral disturbance, psychotic disturbance, mood disturbance, and anxiety (principal)

== ENCOUNTER → 2024-12-13 | Outpatient (REF) ==
[2024-12-13 16:00] LABS: BASO % 0.9 % (0.0-1.0); EOS # 0.2 10^3/uL (0.0-0.5); EOS % 3.8 % (0.0-3.0); HEMATOCRIT 32.5 % (36.0-47.0); LYMPH # 1.2 10^3/uL (1.5-5.0); LYMPH % 26.4 % (24.0-44.0); MEAN CORPUSCULAR HEMOGLOBIN 32.9 pg (27.0-33.0); MEAN CORPUSCULAR HGB CONC 30.8 g/dl (32.0-36.5); MEAN CORPUSCULAR VOLUME 106.9 fl (80.0-96.0); MONO # 0.6 10^3/uL (0.0-0.8); NEUTROPHILS # 2.4 10^3/uL (1.5-8.5); NEUTROPHILS % 54.4 % (36.0-66.0); PLATELET COUNT, AUTOMATED 256 10^3/uL (150-450); RED BLOOD COUNT 3.04 10^6/uL (4.00-5.40); WHITE BLOOD COUNT 4.4 10^3/uL (4.0-10.0)
[2024-12-13 16:04] LABS: APPEARANCE, URINE CLOUDY (CLEAR); BACTERIA, URINE AUTO 1+ (NEGATIVE); BILIRUBIN, URINE AUTO NEGATIVE (NEGATIVE); BLOOD, URINE BLOOD NEGATIVE (NEGATIVE); COLOR, URINE YELLOW (YELLOW); GLUCOSE, URINE (UA) AUTO NEGATIVE (NEGATIVE); KETONE, URINE AUTO NEGATIVE (NEGATIVE); LEUKOCYTE ESTERASE, URINE AUTO 3+ (NEGATIVE); NITRITE, URINE AUTO POSITIVE (NEGATIVE); PROTEIN, URINE AUTO NEGATIVE (NEGATIVE); RBC, URINE AUTO 3 /HPF (0-3); SPECIFIC GRAVITY URINE AUTO 1.012 (1.002-1.035); SQUAMOUS EPITHELIAL CELL UR AU 0 /HPF (0-6); UROBILINOGEN, URINE AUTO 0.2 mg/dL (0.0-2.0); WBC, URINE AUTO 103 /HPF (0-3)
[2024-12-13 16:27] LABS: BLOOD UREA NITROGEN 25 MG/DL (9-23); CALCIUM LEVEL 8.7 MG/DL (8.3-10.6); CARBON DIOXIDE LEVEL 30 MMOL/L (20-31); CHLORIDE LEVEL 106 MMOL/L (98-107); CREATININE FOR GFR 0.94 MG/DL (0.55-1.30); GLOMERULAR FILTRATION RATE > 60.0 (>39); GLUCOSE, FASTING 79 MG/DL (74-106); POTASSIUM SERUM 4.7 MMOL/L (3.5-5.1); SODIUM LEVEL 144 MMOL/L (136-145)
== END ==
PROVIDERS: ATTEND Internal Medicine
DX: N39.0 Urinary tract infection, site not specified (principal)

== ENCOUNTER → 2025-01-01 | Outpatient (REF) ==
[2025-01-01 09:30] LABS: HEMATOCRIT 31.2 % (36.0-47.0); HEMOGLOBIN 9.7 g/dl (12.0-15.5); MEAN CORPUSCULAR HEMOGLOBIN 32.2 pg (27.0-33.0); MEAN CORPUSCULAR HGB CONC 31.1 g/dl (32.0-36.5); MEAN CORPUSCULAR VOLUME 103.7 fl (80.0-96.0); PLATELET COUNT, AUTOMATED 292 10^3/uL (150-450); RED BLOOD COUNT 3.01 10^6/uL (4.00-5.40)
[2025-01-01 10:11] LABS: BLOOD UREA NITROGEN 34 MG/DL (9-23); CARBON DIOXIDE LEVEL 27 MMOL/L (20-31); CHLORIDE LEVEL 106 MMOL/L (98-107); CREATININE FOR GFR 0.95 MG/DL (0.55-1.30); GLOMERULAR FILTRATION RATE > 60.0 (>39); GLUCOSE, FASTING 91 MG/DL (74-106); POTASSIUM SERUM 4.9 MMOL/L (3.5-5.1); SODIUM LEVEL 143 MMOL/L (136-145)
== END ==
PROVIDERS: ATTEND Internal Medicine
DX: E55.9 Vitamin D deficiency, unspecified (principal)

== ENCOUNTER → 2025-01-27 | Outpatient (REF) | payer MEDICARE ==
[2025-01-27 07:30] LABS: HEMATOCRIT 31.8 % (36.0-47.0); HEMOGLOBIN 9.9 g/dl (12.0-15.5); MEAN CORPUSCULAR HEMOGLOBIN 31.9 pg (27.0-33.0); MEAN CORPUSCULAR HGB CONC 31.1 g/dl (32.0-36.5); MEAN CORPUSCULAR VOLUME 102.6 fl (80.0-96.0); PLATELET COUNT, AUTOMATED 251 10^3/uL (150-450); WHITE BLOOD COUNT 5.5 10^3/uL (4.0-10.0)
[2025-01-27 07:52] LABS: CALCIUM LEVEL 9.8 MG/DL (8.3-10.6); CREATININE FOR GFR 1.01 MG/DL (0.55-1.30); GLOMERULAR FILTRATION RATE 56.7 (>39); POTASSIUM SERUM 4.2 MMOL/L (3.5-5.1)
[2025-01-27 07:54] LABS: TOTAL 25(OH) VITAMIN D 28.2 NG/ML (20.0-100.0)
== END ==
PROVIDERS: ATTEND Physician Assistant
DX: F03.90 Unspecified dementia, unspecified severity, without behavioral disturbance, psychotic disturbance, mood disturbance, and anxiety (principal); E55.9 Vitamin D deficiency, unspecified

== ENCOUNTER → 2025-01-28 | Outpatient (REF) | PROVIDERS: ATTEND Internal Medicine | DX: E53.8 Deficiency of other specified B group vitamins (principal); Z53.8 Procedure and treatment not carried out for other reasons ==

== ENCOUNTER 2025-03-04 02:25 | Inpatient (IN) | payer MEDICARE ==
[~2025-03-04] VITALS: Ht 165.1 cm; Wt 85.4 kg
[2025-03-04] MEDS: fentaNYL 100 MCG/2 ML INJECTION IV ONE ×2 (03:00→05:59)
[2025-03-04] MEDS: ACETAMINOPHEN *IV* 1,000 MG in IV 1 EA IV ONE (03:00)
[2025-03-04 03:03] LABS: BASO # 0.1 10^3/uL (0.0-0.2); BASO % 0.5 % (0.0-1.0); EOS # 0.1 10^3/uL (0.0-0.5); EOS % 1.1 % (0.0-3.0); HEMATOCRIT 32.2 % (36.0-47.0); HEMOGLOBIN 10.3 g/dl (12.0-15.5); LYMPH # 0.8 10^3/uL (1.5-5.0); LYMPH % 7.8 % (24.0-44.0); MEAN CORPUSCULAR HEMOGLOBIN 32.1 pg (27.0-33.0); MEAN CORPUSCULAR VOLUME 100.3 fl (80.0-96.0); MONO # 0.8 10^3/uL (0.0-0.8); MONO % 8.2 % (2.0-8.0); NEUTROPHILS # 8.3 10^3/uL (1.5-8.5); NEUTROPHILS % 80.7 % (36.0-66.0); PLATELET COUNT, AUTOMATED 252 10^3/uL (150-450); RED BLOOD COUNT 3.21 10^6/uL (4.00-5.40); WHITE BLOOD COUNT 10.3 10^3/uL (4.0-10.0)
[2025-03-04 03:17] LABS: INR 1.01; PARTIAL THROMBOPLASTIN TIME 28.2 SECONDS (24.8-34.2); PROTHROMBIN TIME 13.6 SECONDS (12.5-14.5)
[2025-03-04 03:42] LABS: CALCIUM LEVEL 9.7 MG/DL (8.3-10.6); CREATININE FOR GFR 0.93 MG/DL (0.55-1.30); GLOMERULAR FILTRATION RATE 63.7 (>39); MAGNESIUM LEVEL 2.1 MG/DL (1.8-2.4); POTASSIUM SERUM 4.6 MMOL/L (3.5-5.1)
[2025-03-04] MEDS ORDERED: ACETAMINOPHEN 325 MG TAB PO PRN (05:40)
[2025-03-04] MEDS ORDERED: MORPHINE 2 MG/ML 1ML VIAL IV PRN (05:40)
[2025-03-04] MEDS ORDERED: ONDANSETRON 4MG 2ML VIAL IV PRN (05:40)
[2025-03-04] MEDS ORDERED: MAALOX 30 ML SUSP *UDC PO PRN (05:40)
[2025-03-04] MEDS ORDERED: MOM 30ML SUSPENSION UDC PO PRN ×2 (05:40→10:35)
[2025-03-04] MEDS: LR 1,000 ML IV SCH (06:32)
[2025-03-04] MEDS: oxyCODONE 5MG TAB PO PRN (06:53)
[2025-03-04] MEDS ORDERED: MED REC IN PROGRESS XX SCH (08:25)
[2025-03-04] MEDS: DOCUSATE SODIUM 100MG CAPSULE PO SCH (08:28)
[2025-03-04 09:00] VITALS: BP 124/67; TEMP 97.7; O2SAT 97
[2025-03-04] MEDS ORDERED: amLODIPine 5 MG TAB PO SCH (09:00)
[2025-03-04] MEDS ORDERED: OXYB-54 PO (09:17)
[2025-03-04] MEDS ORDERED: DOCU8.6T PO (09:19)
[2025-03-04] MEDS ORDERED: ACET1TAB55 PO (09:21)
[2025-03-04] MEDS ORDERED: BISA10SU27 PR (09:22)
[2025-03-04] MEDS ORDERED: FLEEENE12 PR (09:23)
[2025-03-04] MEDS ORDERED: MILKSUS3 PO (09:24)
[2025-03-04] MEDS ORDERED: OLAN2.5T53 PO (09:26)
[2025-03-04] MEDS ORDERED: RAME8TAB2 PO (09:27)
[2025-03-04] MEDS ORDERED: HOME MED LIST COMPLETE! XX SCH (09:30)
[2025-03-04] MEDS ORDERED: OLANZapine 2.5MG TABLET PO PRN (10:35)
[2025-03-04] MEDS ORDERED: BISACODYL 10MG SUPP PR PRN (10:35)
[2025-03-04] MEDS: ENOXAPARIN 40MG/0.4ML SYRINGE (J1650 PER 10MG) SC ONE (10:43)
[2025-03-04 12:00] VITALS: BP 130/57; TEMP 97.7; O2SAT 96
[2025-03-04] MEDS: ACETAMINOPHEN 500 MG TAB PO SCH (15:57)
[2025-03-04 16:00] VITALS: BP 160/58; TEMP 98.4; O2SAT 96
[2025-03-04 20:00] VITALS: BP 152/55; TEMP 97.2; O2SAT 94
[2025-03-04 20:13] VITALS: BP 152/55; TEMP 97.9; O2SAT 95
[2025-03-04] MEDS: ATORVASTATIN 20 MG TAB PO SCH (20:41)
[2025-03-04] MEDS: oxyBUTYnin *DITROPAN XL* 5 MG TABCR PO SCH (20:41)
[2025-03-04] MEDS: CYANOCOBALAMIN 500 MCG TAB PO SCH (20:42)
[2025-03-04 23:39] VITALS: BP 147/51; TEMP 97.2; O2SAT 95
[2025-03-05] VITALS (8 sets, daily range): BP systolic 123–174; BP diastolic 47–93; TEMP 97.2–98.4; O2SAT 90–95
[2025-03-05] MEDS: RAMELTEON 8 MG TAB (ROZEREM) PO PRN (03:56)
[2025-03-05 05:54] LABS: HEMATOCRIT 31.2 % (36.0-47.0); HEMOGLOBIN 9.7 g/dl (12.0-15.5); MEAN CORPUSCULAR HEMOGLOBIN 31.3 pg (27.0-33.0); MEAN CORPUSCULAR HGB CONC 31.1 g/dl (32.0-36.5); MEAN CORPUSCULAR VOLUME 100.6 fl (80.0-96.0); PLATELET COUNT, AUTOMATED 234 10^3/uL (150-450)
[2025-03-05 06:25] LABS: ALBUMIN 3.2 G/DL (3.2-5.2); CALCIUM LEVEL 9.3 MG/DL (8.3-10.6); CREATININE FOR GFR 0.89 MG/DL (0.55-1.30); GLOMERULAR FILTRATION RATE 67.2 (>39); POTASSIUM SERUM 4.5 MMOL/L (3.5-5.1); TOTAL PROTEIN 5.9 G/DL (5.7-8.2)
[2025-03-05] MEDS ORDERED: LIDOCAINE 2% 100MG/5ML SDV (FOR ANES.) As Ordered ONE (07:11)
[2025-03-05] MEDS ORDERED: SUGAMMADEX SODIUM 500 MG/5 ML VIAL (BRIDION) As Ordered ONE (07:11)
[2025-03-05] MEDS ORDERED: propofoL 200 MG/20 ML VIAL As Ordered ONE (07:11)
[2025-03-05] MEDS ORDERED: ROCURONIUM BROMIDE 50MG/5ML VIAL As Ordered ONE (07:11)
[2025-03-05] MEDS ORDERED: KETOROLAC 30 MG/ML 1ML VIAL As Ordered ONE (07:11)
[2025-03-05] MEDS ORDERED: ACETAMINOPHEN 1000MG/100ML IV BAG As Ordered ONE (07:11)
[2025-03-05] MEDS ORDERED: fentaNYL 100 MCG/2 ML INJECTION As Ordered ONE (07:11)
[2025-03-05] MEDS ORDERED: ONDANSETRON 4MG 2ML VIAL As Ordered ONE (07:11)
[2025-03-05] MEDS ORDERED: PHENYLephrine 500MCG 5ML (100MCG/ML) SYRINGE As Ordered ONE (08:10)
[2025-03-05] MEDS: TRANEXAMIC ACID 100 MG/ML 10ML VIAL As Ordered ONE (08:13)
[2025-03-05] MEDS: ceFAZolin SODIUM 2 GM VIAL As Ordered ONE (08:14)
[2025-03-05] MEDS: VANCOMYCIN 500MG/10ML VIAL As Ordered ONE (09:23)
[2025-03-05] MEDS: BUPivacaine LIPOSOME/PF 266MG 20ML VIAL (13.3MG/ML)(EXPAREL) As Ordered ONE (09:26)
[2025-03-05] MEDS ORDERED: LR 1,000 ML IV SCH (09:40)
[2025-03-05] MEDS ORDERED: SENNA 8.6 MG TAB (SENOKOT) PO PRN (09:40)
[2025-03-05] MEDS ORDERED: fentaNYL 100 MCG/2 ML INJECTION IV PRN (09:50)
[2025-03-05] MEDS ORDERED: oxyCODONE 5MG TAB PO PRN (09:50)
[2025-03-05] MEDS ORDERED: ONDANSETRON 4MG 2ML VIAL IV PRN (09:50)
[2025-03-05] MEDS ORDERED: diphenhydrAMINE 50MG/ML VIAL IV PRN (09:50)
[2025-03-05] MEDS ORDERED: METOCLOPRAMIDE INJ 10MG/2ML VIAL IV PRN (09:50)
[2025-03-05] MEDS ORDERED: MEPERIDINE 25 MG/ML 1ML VIAL IV PRN (09:50)
[2025-03-05] MEDS: ASCORBIC ACID 500 MG TAB PO SCH (12:01)
[2025-03-05] MEDS: FERROUS SULFATE 325MG TAB PO SCH (12:02)
[2025-03-05] MEDS: ceFAZolin SODIUM 2 GM in DEXTROSE 5% (D5W) ADV/MINI-BAG 50 ML IV SCH (16:32)
[2025-03-05] MEDS: LR 1,000 ML IV SCH (19:40)
[2025-03-05] MEDS: ASPIRIN 81MG ENTERIC TABLET PO SCH (20:17)
[2025-03-05] MEDS: diphenhydrAMINE 50MG/ML VIAL IV PRN (22:19)
[2025-03-05] MEDS: methocarbamoL 500 MG TAB PO PRN (22:19)
[2025-03-06 00:08] VITALS: BP 108/52; TEMP 98.6; O2SAT 95
[2025-03-06 04:05] VITALS: BP 123/45; TEMP 98.4; O2SAT 94
[2025-03-06 07:03] LABS: HEMATOCRIT 27.8 % (36.0-47.0); MEAN CORPUSCULAR HEMOGLOBIN 32.1 pg (27.0-33.0); MEAN CORPUSCULAR HGB CONC 32.4 g/dl (32.0-36.5); MEAN CORPUSCULAR VOLUME 99.3 fl (80.0-96.0); PLATELET COUNT, AUTOMATED 231 10^3/uL (150-450); WHITE BLOOD COUNT 9.8 10^3/uL (4.0-10.0)
[2025-03-06 07:25] LABS: ALBUMIN 2.9 G/DL (3.2-5.2); BILIRUBIN,TOTAL 0.5 MG/DL (0.3-1.2); CALCIUM LEVEL 9.4 MG/DL (8.3-10.6); GLOMERULAR FILTRATION RATE 58.4 (>39); TOTAL PROTEIN 5.8 G/DL (5.7-8.2)
[2025-03-06 08:00] VITALS: BP 104/66; TEMP 98.1
[2025-03-06] MEDS ORDERED: ENOXAPARIN 40MG/0.4ML SYRINGE (J1650 PER 10MG) SC SCH (09:00)
[2025-03-06] MEDS: CEFDINIR 300 MG CAP (OMNICEF) PO SCH (09:05)
[2025-03-06] MEDS: oxyCODONE 5MG TAB PO PRN (09:26)
[2025-03-06] MEDS ORDERED: OXYC1TAB23 PO (10:46)
[2025-03-06] MEDS ORDERED: ASPI81CH33 PO (10:46)
[2025-03-06] MEDS ORDERED: CEFD300CAP PO ×2 (10:46→10:58)
[2025-03-06 12:00] VITALS: BP 109/34; TEMP 98.2
== END 2025-03-06 14:30 | DRG 522 ==
LOC: M ED 02:25 → EDBD 02:25 → M ED INP 05:39 → M MS5PR 08:05
PROVIDERS: ADMIT Student in an Organized Health Care Education/Training Program; ATTEND Internal Medicine
PROC: 0SRS0J9 Replacement of Left Hip Joint, Femoral Surface with Synthetic Substitute, Cemented, Open Approach (ICD-10-PCS; principal; 2025-03-05 07:30)
DX: S72.002A Fracture of unspecified part of neck of left femur, initial encounter for closed fracture (principal); F03.90 Unspecified dementia, unspecified severity, without behavioral disturbance, psychotic disturbance, mood disturbance, and anxiety; E78.5 Hyperlipidemia, unspecified; W06.XXXA Fall from bed, initial encounter; M81.0 Age-related osteoporosis without current pathological fracture; G47.00 Insomnia, unspecified; I10 Essential (primary) hypertension; E53.8 Deficiency of other specified B group vitamins; N32.81 Overactive bladder; Z91.030 Bee allergy status; Z88.8 Allergy status to other drugs, medicaments and biological substances; Z79.899 Other long term (current) drug therapy; Y92.122 Bedroom in nursing home as the place of occurrence of the external cause

== ENCOUNTER → 2025-03-05 | Outpatient (REF) ==
[~2025-03-05] MED LIST changes: +ACET1TAB55 PO; +ASPI81CH33 PO; +BISA10SU27 PR; +CEFD300CAP PO; +DOCU8.6T PO; +FLEEENE12 PR; +MILKSUS3 PO; +OXYB-54 PO; +OXYC1TAB23 PO
== END ==
PROVIDERS: ATTEND Internal Medicine
DX: Z53.8 Procedure and treatment not carried out for other reasons (principal)

== ENCOUNTER → 2025-03-12 | Outpatient (REF) ==
[2025-03-12 09:15] LABS: HEMATOCRIT 27.5 % (36.0-47.0); HEMOGLOBIN 8.4 g/dl (12.0-15.5); MEAN CORPUSCULAR HEMOGLOBIN 30.8 pg (27.0-33.0); MEAN CORPUSCULAR HGB CONC 30.5 g/dl (32.0-36.5); MEAN CORPUSCULAR VOLUME 100.7 fl (80.0-96.0); PLATELET COUNT, AUTOMATED 379 10^3/uL (150-450); RED BLOOD COUNT 2.73 10^6/uL (4.00-5.40); WHITE BLOOD COUNT 8.2 10^3/uL (4.0-10.0)
[2025-03-12 09:40] LABS: CALCIUM LEVEL 8.8 MG/DL (8.3-10.6); CREATININE FOR GFR 0.96 MG/DL (0.55-1.30); GLOMERULAR FILTRATION RATE 61.3 (>39); POTASSIUM SERUM 4.3 MMOL/L (3.5-5.1)
== END ==
PROVIDERS: ATTEND Internal Medicine
DX: Z51.89 Encounter for other specified aftercare (principal); Z79.899 Other long term (current) drug therapy

== ENCOUNTER → 2025-03-17 | Outpatient (CLI) | payer MEDICARE | LOC: M SOG 09:35 | PROVIDERS: ATTEND Orthopaedic Surgery | DX: S72.002D Fracture of unspecified part of neck of left femur, subsequent encounter for closed fracture with routine healing (principal); Z96.641 Presence of right artificial hip joint ==

== ENCOUNTER 2025-03-30 18:31 | Emergency (ER) | payer MEDICARE ==
[2025-03-30 18:59] LABS: BASO % 0.4 % (0.0-1.0); EOS # 0.3 10^3/uL (0.0-0.5); EOS % 3.6 % (0.0-3.0); HEMATOCRIT 30.2 % (36.0-47.0); HEMOGLOBIN 9.4 g/dl (12.0-15.5); LYMPH # 1.6 10^3/uL (1.5-5.0); LYMPH % 19.8 % (24.0-44.0); MEAN CORPUSCULAR HGB CONC 31.1 g/dl (32.0-36.5); MEAN CORPUSCULAR VOLUME 99.7 fl (80.0-96.0); MONO # 0.8 10^3/uL (0.0-0.8); MONO % 9.4 % (2.0-8.0); NEUTROPHILS # 5.3 10^3/uL (1.5-8.5); NEUTROPHILS % 65.4 % (36.0-66.0); PLATELET COUNT, AUTOMATED 387 10^3/uL (150-450); RED BLOOD COUNT 3.03 10^6/uL (4.00-5.40); WHITE BLOOD COUNT 8.1 10^3/uL (4.0-10.0)
[2025-03-30] MEDS ORDERED: ACET-907 PO (19:04)
[2025-03-30] MEDS ORDERED: ZOLO25TA PO (19:04)
[2025-03-30] MEDS ORDERED: ACET-897 PO (19:04)
[2025-03-30 19:26] LABS: CALCIUM LEVEL 9.6 MG/DL (8.3-10.6); CREATININE FOR GFR 0.94 MG/DL (0.55-1.30); GLOMERULAR FILTRATION RATE 62.9 (>39); MB/CK RELATIVE INDEX 3.77 (< OR =4); POTASSIUM SERUM 4.5 MMOL/L (3.5-5.1)
[2025-03-30 22:15] VITALS: BP 136/77; TEMP 98.6; O2SAT 98
== END 2025-03-30 22:24 | disposition home or self-care (01) ==
LOC: M ED 18:31
DX: R07.89 Other chest pain (principal); I48.91 Unspecified atrial fibrillation; I10 Essential (primary) hypertension; E78.5 Hyperlipidemia, unspecified; J44.9 Chronic obstructive pulmonary disease, unspecified; F41.9 Anxiety disorder, unspecified; G47.00 Insomnia, unspecified; Z79.82 Long term (current) use of aspirin; Z79.899 Other long term (current) drug therapy; Z91.030 Bee allergy status; Z88.3 Allergy status to other anti-infective agents

== ENCOUNTER → 2025-05-28 | Outpatient (REF) | payer MEDICARE ==
[~2025-05-28] MED LIST changes: +ACET-897 PO; +ACET-907 PO; +ZOLO25TA PO
[2025-05-28 10:31] LABS: PLATELET COUNT, AUTOMATED 337 10^3/uL (150-450)
[2025-05-28 11:04] LABS: CALCIUM LEVEL 10.2 MG/DL (8.3-10.6); CARBON DIOXIDE LEVEL 29.0 MMOL/L (20-31); CHLORIDE LEVEL 105.0 MMOL/L (98-107); CREATININE FOR GFR 0.91 MG/DL (0.55-1.30); GLOMERULAR FILTRATION RATE 65.4 (>39); POTASSIUM SERUM 4.5 MMOL/L (3.5-5.1); SODIUM LEVEL 146.0 MMOL/L (136-145)
== END ==
PROVIDERS: ATTEND Internal Medicine
DX: R41.82 Altered mental status, unspecified (principal)

== ENCOUNTER → 2025-06-17 | Outpatient (CLI) | payer MEDICARE | LOC: M SOG 07:01 | PROVIDERS: ATTEND Orthopaedic Surgery | DX: Z53.9 Procedure and treatment not carried out, unspecified reason (principal) ==

== ENCOUNTER → 2025-07-28 | Outpatient (REF) | payer MEDICARE ==
[2025-08-02 15:17] LABS: 25-HYDROXY VITAMIN D2 < 8 pg/mL; 25-HYDROXY VITAMIN D3 < 8 pg/mL; VITAMIN D 1 25 DIHYDROXY < 8 pg/mL (18-72)
== END ==
PROVIDERS: ATTEND Internal Medicine
DX: F41.9 Anxiety disorder, unspecified (principal); E55.9 Vitamin D deficiency, unspecified

== ENCOUNTER → 2025-09-24 | Outpatient (REF) | payer MEDICARE ==
[2025-09-24 10:54] LABS: PLATELET COUNT, AUTOMATED 311 10^3/uL (150-450)
[2025-09-24 11:26] LABS: CALCIUM LEVEL 10.1 MG/DL (8.3-10.6); CARBON DIOXIDE LEVEL 28.0 MMOL/L (20-31); CHLORIDE LEVEL 105.0 MMOL/L (98-107); CREATININE FOR GFR 0.91 MG/DL (0.55-1.30); GLOMERULAR FILTRATION RATE 65.4 (>39); POTASSIUM SERUM 4.4 MMOL/L (3.5-5.1); SODIUM LEVEL 143.0 MMOL/L (136-145)
== END ==
PROVIDERS: ATTEND Internal Medicine
DX: I10 Essential (primary) hypertension (principal)

== ENCOUNTER → 2025-10-29 | Outpatient (REF) | payer MEDICARE ==
[~2025-10-29] MED LIST changes: -DOCU8.6T PO; +SENN-208 PO
[2025-10-29 13:32] LABS: PLATELET COUNT, AUTOMATED 314 10^3/uL (150-450)
[2025-10-29 13:56] LABS: CALCIUM LEVEL 9.3 MG/DL (8.3-10.6); CARBON DIOXIDE LEVEL 28.0 MMOL/L (20-31); CHLORIDE LEVEL 106.0 MMOL/L (98-107); CREATININE FOR GFR 0.88 MG/DL (0.55-1.30); GLOMERULAR FILTRATION RATE 68.1 (>39); POTASSIUM SERUM 4.2 MMOL/L (3.5-5.1); SODIUM LEVEL 143.0 MMOL/L (136-145)
== END ==
PROVIDERS: ATTEND Internal Medicine
DX: F41.9 Anxiety disorder, unspecified (principal); Z79.899 Other long term (current) drug therapy